=== PATIENT | female | born 1990 | race Caucasian/White ===

== ENCOUNTER 2018-06-23 08:39 | Observation (INO) | payer OTHER ==
[~2018-06-23 08:39] MED LIST: KEPP500 PO; LACO50TA2 PO; OXCA300T31 PO
[2018-06-23] MEDS ORDERED: PNV1TABL76 MT (09:41)
== END 2018-06-23 10:00 | disposition home or self-care (01) ==
LOC: L&D 08:39
PROVIDERS: ADMIT Specialist; ATTEND Specialist
DX: O42.913 Preterm premature rupture of membranes, unspecified as to length of time between rupture and onset of labor, third trimester (principal); Z3A.31 31 weeks gestation of pregnancy
CPT/HCPCS: 99281; G0378